=== PATIENT | male | born 1980 | race Two or more races ===

== ENCOUNTER 2023-02-02 23:45 | Emergency (ER) | payer MEDICAID, OTHER ==
[2023-02-03 00:44] LABS: Basophils # (auto) 0.1 10 ^3/uL (0-0.2); Basophils % (auto) 1.3 % (0.0-2.0); Eosinophils # (auto) 0.1 10 ^3/uL (0-0.8); Eosinophils % (auto) 3.5 % (0.0-7.0); Hematocrit 40.3 % (41.0-53.0); Hemoglobin 13.7 g/dL (13.5-17.5); Lymphocytes # (auto) 1.4 10 ^3/uL (0.4-5.4); Lymphocytes % (auto) 33.5 % (10.0-50.0); Mean Corpuscular Hemoglobin 30.1 pg (28.0-32.0); Mean Corpuscular Hgb Conc. 34.1 g/dL (32.0-36.0); Mean Corpuscular Volume 88.4 fL (80.0-100.0); Monocytes # (auto) 0.3 10 ^3/uL (0-1.3); Monocytes % (auto) 7.2 % (0.0-12.0); Neutrophils # (auto) 2.3 10 ^3/uL (1.6-8.6); Neutrophils % (auto) 54.5 % (37.0-80.0); Nucleated Red Blood Cells % 0.1 %; Red Blood Cells 4.56 10^6/uL (4.5-5.90); Red Cell Distribution Width 14.1 % (11.8-14.3); White Blood Cell 4.2 10^3/uL (4.4-10.8)
[2023-02-03 01:10] LABS: Albumin 3.9 g/dL (3.4-5.0); BUN/Creatinine Ratio 12.3 (10.0-20.0); Calcium 8.8 mg/dL (8.5-10.1); Magnesium 2.8 mg/dL (1.6-2.6); Potassium 3.6 mmol/L (3.5-5.1)
[2023-02-03 01:12] LABS: Salicylate < 1.7 mg/dL (2.8-20.0)
[2023-02-03 01:13] LABS: Bilirubin, Total 0.5 mg/dL (0.2-1.0)
[2023-02-03 01:14] LABS: Acetaminophen < 2.0 ug/mL (10-30)
[2023-02-03] MEDS ORDERED: FAMOTIDINE 20 MG TAB PO ONE (07:15)
[2023-02-03] MEDS ORDERED: ONDANSETRON ODT 4 MG TAB PO ONE (07:15)
[2023-02-03 09:43] VITALS: BP 108/72; PULSE 72; RESP 16; TEMP 98.2; O2SAT 99
== END 2023-02-03 09:52 | disposition home or self-care (01) ==
LOC: EDBD 23:45 → ER 23:45
DX: F10.129 Alcohol abuse with intoxication, unspecified (principal); D72.819 Decreased white blood cell count, unspecified; F17.210 Nicotine dependence, cigarettes, uncomplicated
CPT/HCPCS: 36415; 80053; 80320; 80329; 83735; 85025; 99283; Q0162